=== PATIENT | male | born 1985 | race Caucasian/White ===

== ENCOUNTER 2023-01-18 15:31 | Emergency (ER) | payer OTHER ==
[2023-01-18 15:37] VITALS: BP 119/64; PULSE 87; RESP 18; TEMP 97.3; BMI 20.3
[2023-01-18] MEDS ORDERED: ONDANSETRON 4 MG/2 ML VIAL IVPUSH ONE (15:49)
[2023-01-18] MEDS ORDERED: SODIUM CHLORIDE 0.9% 500 ML INFUS.BAG IV ONE (15:49)
[2023-01-18] MEDS ORDERED: ONDANSETRON 4 MG/2 ML VIAL ONE (16:11)
[2023-01-18] MEDS ORDERED: ACETAMINOPHEN 1000 MG/100 ML BAG IVPB ONE (16:32)
[2023-01-18] MEDS ORDERED: DEXAMETHASONE SOD PHOSPHATE 10 MG/1 ML VIAL IVPUSH ONE (16:32)
[2023-01-18] MEDS ORDERED: ACETAMINOPHEN INJECTION 100 ML IVPB ONE (16:34)
[2023-01-18] MEDS ORDERED: DEXAMETHASONE SOD PHOSPHATE 10 MG/1 ML VIAL ONE (16:34)
[2023-01-18 17:07] LABS: BASO % 0.4 % (0-2.0); EOS % 0.5 % (0-4.5); HEMATOCRIT 41.3 % (35.4-49); HEMOGLOBIN 13.9 GM/dL (11.7-16.9); LYMPH % 26.2 % (8-40); MCH 28.3 pg (25.7-33.7); MCHC 33.7 g/dl (32.0-35.9); MEAN CELL VOLUME 83.9 fl (80-96); MONO % 8.6 % (3.8-10.2); NEUT % 64.3 % (42.8-82.8); PLATELET COUNT 250 10^3/uL (134-434); RBC 4.92 M/mm3 (4.00-5.60); RDW 16.1 % (11.9-15.9); WHITE BLOOD COUNT 8.6 K/mm3 (4.0-10.0)
[2023-01-18 17:23] LABS: POTASSIUM 4.1 mmol/L (3.5-5.1)
[2023-01-18 17:27] LABS: ALBUMIN 4.2 g/dl (3.4-5.0); BLOOD UREA NITROGEN 20.5 mg/dL (7-18); CALCIUM 9.2 mg/dL (8.5-10.1)
[2023-01-18 17:32] LABS: BILIRUBIN,TOTAL 1.6 mg/dL (0.2-1); TOT PROT 7.5 g/dl (6.4-8.2)
[2023-01-18] MEDS ORDERED: KETOROLAC TROMETHAMINE 30 MG/1 ML VIAL IVPUSH ONE (18:44)
[2023-01-18] MEDS ORDERED: AZITHROMYCIN 250 MG TABLET PO ONE (19:03)
[2023-01-18] MEDS ORDERED: AZITHROMYCIN 500 MG TABLET ONE (19:04)
== END 2023-01-18 19:18 | disposition home or self-care (01) ==
LOC: JER 15:31
PROC: 3E033NZ Introduction of Analgesics, Hypnotics, Sedatives into Peripheral Vein, Percutaneous Approach (ICD-10-PCS; principal; 2023-01-18)
PROC: 3E033GC Introduction of Other Therapeutic Substance into Peripheral Vein, Percutaneous Approach (ICD-10-PCS; 2023-01-18)
PROC: 3E033GC Introduction of Other Therapeutic Substance into Peripheral Vein, Percutaneous Approach (ICD-10-PCS; 2023-01-18)
PROC: 3E033GC Introduction of Other Therapeutic Substance into Peripheral Vein, Percutaneous Approach (ICD-10-PCS; 2023-01-18)
DX: J02.9 Acute pharyngitis, unspecified (principal); R13.10 Dysphagia, unspecified; R11.2 Nausea with vomiting, unspecified
CPT/HCPCS: 36415; 70491-TC; 80053; 83690; 85025; 87651; 99284-25; J1100; Q9967